=== PATIENT | female | born 2000 | race Caucasian/White ===

== ENCOUNTER 2019-01-12 19:13 | Day surgery (SDC) | payer OTHER ==
[2019-01-12 20:02] VITALS: BP 115/69; TEMP 98.7; BMI 30.6
--- NOTE | 2019-01-12 21:43 | PRG ---
DATE OF SERVICE: 01/12/2019 PRIMARY OB: Joe Johnson MD CHIEF COMPLAINT: Decreased movement. HISTORY OF PRESENT ILLNESS: The patient is a 18-year-old G1, P0 female with an intrauterine at 26 weeks and 6 days, who is presenting to Labor and Delivery today with a 1-day history of decreased movement. The patient denies any medical problems or any complications with this . She denies any recent illness, fever, fall, headache, chest pain, shortness of breath, nausea, vomiting, diarrhea, constipation, hip problems, knee problems, muscle weakness, any new rashes, bleeding, leakage of fluid, or urinary urgency. PAST MEDICAL HISTORY: Negative. PAST SURGICAL HISTORY: Negative. ALLERGIES: NO KNOWN DRUG ALLERGIES. MEDICATIONS: vitamins. SOCIAL HISTORY: Denies drug, alcohol or tobacco use. OB LABS: Unavailable at the time of dictation. REVIEW OF SYSTEMS: Per HPI. PHYSICAL EXAMINATION: VITAL SIGNS: Blood pressure 110/69, heart rate of 81, saturating 100% on room air. GENERAL: She appears to be in no acute distress. She is alert, oriented, cooperative, and pleasant to interact with. HEAD: Normocephalic and atraumatic. LUNGS: Clear to auscultation bilaterally. HEART: Has regular rate and rhythm. ABDOMEN: Gravid and soft. EXTREMITIES: Nontender and nonedematous. heart tracing shows the fetus with a baseline in the 140s with moderate long-term variability, positive 10 x 10 accelerations, no decelerations. The tocometer showing no contraction pattern. Bedside ultrasound demonstrates an EVA of 12.5 and fetus showing suckling motions, movements of the mouth. ASSESSMENT AND PLAN: The patient is a 18-year-old female with an intrauterine at 26 weeks and 6 days, presenting with decreased movement. The patient has a reassuring heart tracing and normal EVA. The patient has been given reassurance and is being discharged to home. The patient has been counseled to follow up with her primary OB as scheduled. Job ID: [id number]
== END 2019-01-12 20:50 | disposition home or self-care (01) ==
LOC: L&D/OP 19:13
PROVIDERS: ATTEND Family Medicine
DX: O36.8120 Decreased fetal movements, second trimester, not applicable or unspecified (principal); Z3A.26 26 weeks gestation of pregnancy
CPT/HCPCS: 76815; 99281